=== PATIENT | female | born 1955 | race Caucasian/White ===

== ENCOUNTER 2019-07-21 15:23 | Emergency (ER) | payer BC ==
[2019-07-21 15:36] VITALS: BP 167/70
--- NOTE | 2019-07-21 15:44 | PHYS DOC ---
Past History Past Medical History: High Cholesterol, Hypertension, Hypothyroid Past Surgical History: No Surgical History Alcohol Use: None Drug Use: None Adult General Chief Complaint Chief Complaint: FINGER INJURY HPI HPI 64-year-old female presenting the emergency department today with a thumb laceration that occurred prior to arrival. Bleeding was then controlled however she put pressure on it which stopped the bleeding prior to arrival. She denies any other injuries. She has a sharp shooting pain that is nonradiating and mild in her finger from the cut. Review of systems is negative for any other injuries. ED course: 64-year-old female presenting with a finger laceration. We used Steri-Strips to reapproximate the wound. Her tetanus is up-to-date. We'll discharge him follow up with PCP in 2-5 days. Allergies Allergies Allergies Coded Allergies Type Severity Reaction Last Updated Verified No Known Drug Allergies 07/21/19 No Physical Exam Physical Exam Constitutional: Well developed, well nourished, no acute distress, non-toxic appearance. [] HENT: Normocephalic, atraumatic, bilateral external ears normal, oropharynx moist, no oral exudates, nose normal. [] Eyes: PERRLA, EOMI, conjunctiva normal, no discharge. [] Neck: Normal range of motion, no tenderness, supple, no stridor. [] Cardiovascular:Heart rate regular rhythm, no murmur [] Lungs & Thorax: Bilateral breath sounds clear to auscultation [] Abdomen: Bowel sounds normal, soft, no tenderness, no masses, no pulsatile masses. [] Skin: Warm, dry, no erythema, no rash. [] Back: No tenderness, no CVA tenderness. [] Extremities: pt has a 1cm laceration to the right thumb. superficial. nvi. no other injuries. Neurologic: Alert and oriented X 3, normal motor function, normal sensory function, no focal deficits noted. [] Psychologic: Affect normal, judgement normal, mood normal. [] Current Patient Data Vital Signs Vital Signs Date Time Temp Pulse Resp B/P (MAP) Pulse Ox O2 Delivery O2 Flow Rate FiO2 07/21/19 15:36 82 18 93 Room Air EKG EKG [] Radiology/Procedures Radiology/Procedures [] Course & Med Decision Making Course & Med Decision Making Pertinent Labs and Imaging studies reviewed. (See chart for details) [] Dragon Disclaimer Dragon Disclaimer This electronic medical record was generated, in whole or in part, using a voice recognition dictation system. Departure Departure: Impression: Primary Impression: Laceration of thumb Disposition: 01 HOME, SELF-CARE Condition: STABLE Patient Instructions: Fingertip Laceration Additional Instructions: Thank you for allowing us to participate in your care today. Return to the emergency department you have any new or worsening symptoms, or if you are concerned for any reason. Return to emergency department if you have any new or concerning symptoms including but not limited to fever, chills, nausea, vomiting, intractable pain, any new rashes, chest pain, shortness of air, uncontrolled bleeding, difficulty breathing, and/or vision loss. Follow up with your primary care physician within 1-2 days. Call your Primary Doctor tomorrow and inform them of your visit today. If you do not have a primary care provider we are happy to provide you with a list of our primary care providers contact information. This condition should be evaluated by your primary care physician and any recommended consulting services for continued management within 2 days after discharge. If at any time, you are having difficulty getting into your primary care doctor or a specialist, return to the emergency department. TAVIA CRUZ MD Jul 21, 2019 15:43
== END 2019-07-21 15:50 | disposition home or self-care (01) ==
LOC: ER 15:23
DX: S61.011A Laceration without foreign body of right thumb without damage to nail, initial encounter (principal); E78.00 Pure hypercholesterolemia, unspecified; I10 Essential (primary) hypertension; E03.9 Hypothyroidism, unspecified; W26.8XXA Contact with other sharp object(s), not elsewhere classified, initial encounter; Y93.89 Activity, other specified; Y92.89 Other specified places as the place of occurrence of the external cause; Y99.8 Other external cause status
CPT/HCPCS: 99282